=== PATIENT | male | born 1970 | race American Indian/Alaskan Native ===

== ENCOUNTER 2018-08-13 02:36 | Emergency (ER) | payer MEDICARE ==
[2018-08-13 03:19] VITALS: BP 169/80
--- NOTE | 2018-08-13 05:00 | XRay Report ---
PROCEDURE: XR RIBS UNI W PA CHEST 3+V RT TECHNIQUE: A PA view of the chest was obtained along with 5 views of the right ribs. HISTORY: post fall rib pain COMPARISONS: None FINDINGS: There is an acute to subacute nondisplaced fracture of the lateral aspect of the right ninth rib. The re are no additional rib fractures. The lungs are clear. The heart size is normal. Pleural fluid is n ot seen. IMPRESSION: Acute to subacute nondisplaced fracture of the lateral aspect of the right ninth rib.. No evidence of pneumothorax or infiltrate. This document is electronically signed by Jesús Bonilla MD., August 13 2018 04:58:46 AM ET
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
[2018-08-13] MEDS ORDERED: NORCO 5/325 PO STA (05:17)
== END 2018-08-13 05:30 | disposition home or self-care (01) ==
LOC: ED 02:36
DX: S22.39XA Fracture of one rib, unspecified side, initial encounter for closed fracture (principal); M10.9 Gout, unspecified; Z79.899 Other long term (current) drug therapy; Z91.030 Bee allergy status; Y04.2XXA Assault by strike against or bumped into by another person, initial encounter; Y93.89 Activity, other specified; Y92.89 Other specified places as the place of occurrence of the external cause; Y99.8 Other external cause status
CPT/HCPCS: 99283

== ENCOUNTER 2020-05-08 13:35 | Emergency (ER) | payer OTHER, MEDICARE ==
[2020-05-08 14:15] VITALS: BP 150/97
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
[2020-05-08 16:38] LABS: Alanine Aminotransferase 43 units/L (7-56); Albumin 4.1 g/dL (3.9-5); BUN/Creatinine Ratio 13; Blood Urea Nitrogen 13 mg/dL (9-20); Calcium 9.5 mg/dL (8.4-10.2); Hemolysis Index 26
[2020-05-08 16:43] LABS: Basophils % (Auto) 1.1 % (0.0-1.8); Eosinophils # (Auto) 0.1 K/mm3 (0.0-0.4); Hematocrit 46.7 % (35.5-45.6); Lymphocytes # (Auto) 1.3 K/mm3 (1.2-5.4); Lymphocytes % (Auto) 28.8 % (13.4-35.0); Mean Corpuscular HGB Conc 34 % (32-34); Mean Corpuscular Volume 90 fl (84-94); Monocytes # (Auto) 0.5 K/mm3 (0.0-0.8); Monocytes % (Auto) 9.9 % (0.0-7.3); Platelet Count 179 K/mm3 (140-440); Red Cell Distribution Width 13.2 % (13.2-15.2)
[2020-05-08] MEDS ORDERED: CYCLOBENZAPRINE 10 MG TAB PO ONE (17:45)
[2020-05-08] MEDS ORDERED: IBUPROFEN 800 MG TAB PO ONE (17:45)
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
== END 2020-05-08 18:42 | disposition home or self-care (01) ==
LOC: ED 13:35
DX: S39.012A Strain of muscle, fascia and tendon of lower back, initial encounter (principal); S20.219A Contusion of unspecified front wall of thorax, initial encounter; M19.91 Primary osteoarthritis, unspecified site; Z98.890 Other specified postprocedural states; Z79.1 Long term (current) use of non-steroidal anti-inflammatories (NSAID); Z79.899 Other long term (current) drug therapy; Z91.030 Bee allergy status; V53.5XXA Driver of pick-up truck or van injured in collision with car, pick-up truck or van in traffic accident, initial encounter; Y93.89 Activity, other specified; Y92.410 Unspecified street and highway as the place of occurrence of the external cause; Y99.8 Other external cause status
CPT/HCPCS: 36415; 71046; 80053; 85025

== ENCOUNTER 2021-05-02 22:28 | Emergency (ER) | payer MEDICARE ==
[2021-05-02 23:00] VITALS: BP 139/79
[2021-05-02] MEDS ORDERED: FLUORESCEIN 1 MG STRIP OP ONE (23:17)
[2021-05-02] MEDS ORDERED: HYDROcodone/ACETAMINOPHEN 5-325 MG TAB PO ONE (23:18)
[2021-05-02] MEDS ORDERED: TETRACAINE 0.5% OPHTH SOLN 4ML OS ONE (23:18)
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
== END 2021-05-03 00:54 | disposition home or self-care (01) ==
LOC: ED 22:28
DX: H57.12 Ocular pain, left eye (principal); T15.92XA Foreign body on external eye, part unspecified, left eye, initial encounter; M19.90 Unspecified osteoarthritis, unspecified site; Z98.890 Other specified postprocedural states; Z88.8 Allergy status to other drugs, medicaments and biological substances
CPT/HCPCS: 99282